=== PATIENT | female | born 1985 | race Caucasian/White ===

== ENCOUNTER 2016-12-12 12:38 | Emergency (ER) | payer MEDICAID ==
[~2016-12-12] VITALS: Ht 175.3 cm; Wt 121.3 kg
[2016-12-12] MEDS ORDERED: SODIUM CHLORIDE 0.9% 1,000ML IVBOLUS ONE (15:00)
[2016-12-12] MEDS ORDERED: ONDANSETRON 2MG/ML, 2ML IVPush ONE (15:00)
[2016-12-12] MEDS ORDERED: SODIUM CHLORIDE FLUSH 10ML SYR IVF ONE (15:00)
[2016-12-12] MEDS ORDERED: KETOROLAC 30 MG/1 ML IVPush ONE (15:00)
[2016-12-12] MEDS ORDERED: KETOROLAC 30 MG/1 ML ONE (15:01)
[2016-12-12] MEDS ORDERED: ONDANSETRON 2MG/ML, 2ML ONE (15:01)
[2016-12-12 15:48] LABS: HEMOGLOBIN 11.6 g/dL (11.7-16.4)
[2016-12-12 15:57] LABS: BLOOD UREA NITROGEN 10 mg/dL (7-18)
[2016-12-12 16:02] LABS: ASPARTATE AMINO TRANSFERASE 10 U/L (15-37)
[2016-12-12] MEDS ORDERED: OMNIPAQUE 350 MG/ML, 100ML BOTTLE ONE (17:10)
[2016-12-12 18:33] VITALS: BP 100/62
== END 2016-12-12 18:36 | disposition home or self-care (01) ==
LOC: ED 14:49
DX: R10.32 Left lower quadrant pain (principal); R19.7 Diarrhea, unspecified; R11.0 Nausea; F32.9 Major depressive disorder, single episode, unspecified; F41.1 Generalized anxiety disorder; Z90.49 Acquired absence of other specified parts of digestive tract; F17.200 Nicotine dependence, unspecified, uncomplicated
CPT/HCPCS: 36415; 74177; 80053; 81001; 84703; 85025; 96361; 96374; 96375; 99285; J1885; J2405; J7030; Q9967

== ENCOUNTER 2017-01-20 13:42 | Emergency (ER) | payer MEDICAID ==
[~2017-01-20] VITALS: Ht 177.8 cm; Wt 117.2 kg
[2017-01-20 13:45] VITALS: BP 138/83
[2017-01-20] MEDS ORDERED: SODIUM CHLORIDE 0.9% 1,000 ML IV ONE (14:21)
[2017-01-20] MEDS ORDERED: ONDANSETRON 2MG/ML, 2ML IVPush ONE (14:30)
[2017-01-20 14:53] LABS: ASPARTATE AMINO TRANSFERASE 6 U/L (15-37); BLOOD UREA NITROGEN 10 mg/dL (7-18)
[2017-01-20 15:05] LABS: HCG UR OBC PASS
[2017-01-20] MEDS ORDERED: MORPHINE SULFATE 4 MG/ML, 1ML ONE ×2 (15:34→16:40)
[2017-01-20] MEDS ORDERED: ONDANSETRON 2MG/ML, 2ML ONE (15:34)
[2017-01-20] MEDS: MORPHINE SULFATE 4 MG/ML, 1ML IVPush PRN ×2 (15:37→16:42)
[2017-01-20] MEDS ORDERED: OMNIPAQUE 350 MG/ML, 100ML BOTTLE ONE (15:56)
[2017-01-20] MEDS ORDERED: ASPI1TAB30 PO (16:48)
[2017-01-20] MEDS ORDERED: FOLI1TAB47 PO (16:49)
== END 2017-01-20 18:14 | disposition home or self-care (01) ==
LOC: ED 14:27
DX: R10.84 Generalized abdominal pain (principal); Z90.49 Acquired absence of other specified parts of digestive tract
CPT/HCPCS: 36415; 74000; 74177; 80053; 81001; 81025; 83605; 83690; 85025; 87086; 87210; 87491; 87591; 87808; 93005; 96361; 96374; 96375; 96376; 99285; J2405; J7030; Q9967

== ENCOUNTER 2017-02-08 17:53 | Emergency (ER) | payer MEDICAID ==
[~2017-02-08] VITALS: Ht 175.3 cm; Wt 118.3 kg
[~2017-02-08 17:53] MED LIST: ASPI1TAB30 PO; FOLI1TAB47 PO
[2017-02-08] MEDS ORDERED: MAALOX/HYOSCYAMINE/LIDOCAINE 45 ML BOTTLE PO ONE (19:00)
[2017-02-08 19:08] LABS: HCG UR OBC PASS
[2017-02-08] MEDS ORDERED: MAALOX/HYOSCYAMINE/LIDOCAINE 45 ML BOTTLE ONE (19:15)
[2017-02-08 19:18] LABS: BLOOD UREA NITROGEN 9 mg/dL (7-18)
[2017-02-08 19:37] LABS: ASPARTATE AMINO TRANSFERASE 12 U/L (15-37)
[2017-02-08 22:00] VITALS: BP 121/66
== END 2017-02-08 22:03 | disposition home or self-care (01) ==
LOC: ED 21:50
DX: O98.811 Other maternal infectious and parasitic diseases complicating pregnancy, first trimester (principal); K29.70 Gastritis, unspecified, without bleeding; R10.13 Epigastric pain
CPT/HCPCS: 36415; 76801; 80053; 81003; 81025; 83690; 84702; 85025

== ENCOUNTER 2017-03-15 18:50 | Emergency (ER) | payer MEDICAID ==
[~2017-03-15] VITALS: Ht 175.3 cm; Wt 117.5 kg
[2017-03-15] MEDS ORDERED: ONDANSETRON 2MG/ML, 2ML IVPush ONE (19:30)
[2017-03-15] MEDS ORDERED: SODIUM CHLORIDE FLUSH 10ML SYR IVF ONE (19:30)
[2017-03-15] MEDS ORDERED: SODIUM CHLORIDE 0.9% 1,000ML IVBOLUS ONE (19:30)
[2017-03-15] MEDS ORDERED: ONDANSETRON 2MG/ML, 2ML ONE (19:30)
[2017-03-15 19:39] LABS: ASPARTATE AMINO TRANSFERASE 13 U/L (15-37); BLOOD UREA NITROGEN 6 mg/dL (7-18)
[2017-03-15] MEDS ORDERED: PROMETHAZINE 25 MG/ML, 1ML ONE (21:26)
[2017-03-15] MEDS ORDERED: PROMETHAZINE 25 MG/ML, 1ML IM ONE (21:30)
[2017-03-15 22:30] VITALS: BP 127/68
== END 2017-03-15 22:41 | disposition home or self-care (01) ==
LOC: ED 21:54
DX: K52.9 Noninfective gastroenteritis and colitis, unspecified (principal); R19.7 Diarrhea, unspecified; R11.2 Nausea with vomiting, unspecified; G43.909 Migraine, unspecified, not intractable, without status migrainosus; E66.9 Obesity, unspecified; Z90.49 Acquired absence of other specified parts of digestive tract
CPT/HCPCS: 36415; 80053; 81003; 83690; 85025; 96361; 96372; 96374; 99285; J2405; J2550; J7030

== ENCOUNTER 2017-05-06 12:13 | Emergency (ER) | payer MEDICAID ==
[~2017-05-06] VITALS: Ht 175.3 cm; Wt 118.5 kg
[2017-05-06 13:16] LABS: HEMATOCRIT 38.3 % (34.6-47.8); HEMOGLOBIN 12.9 g/dL (11.7-16.4); WHITE BLOOD COUNT 10.2 x10^3/uL (3.4-10)
[2017-05-06 14:57] VITALS: BP 104/62
[2017-05-06 15:10] VITALS: BP 116/96
== END 2017-05-06 16:22 | disposition home or self-care (01) ==
LOC: ED 14:47
DX: O20.0 Threatened abortion (principal); O36.0920 Maternal care for other rhesus isoimmunization, second trimester, not applicable or unspecified; Z3A.18 18 weeks gestation of pregnancy
CPT/HCPCS: 36415; 36430; 76805; 81003; 84702; 85025; 86850; 86900; 99285; J2790

== ENCOUNTER 2017-06-16 13:46 | Emergency (ER) | payer MEDICAID ==
[~2017-06-16] VITALS: Ht 170.2 cm; Wt 110.0 kg
[~2017-06-16 13:46] MED LIST changes: -ASPI1TAB30 PO; +ASPI1TAB31 PO
[2017-06-16 13:49] VITALS: BP 120/64
[2017-06-16] MEDS ORDERED: SODIUM CHLORIDE FLUSH 10ML SYR IVF ONE (14:00)
[2017-06-16] MEDS ORDERED: SODIUM CHLORIDE 0.9% 1,000ML IVBOLUS ONE (14:00)
[2017-06-16 14:12] LABS: HEMATOCRIT 35.1 % (34.6-47.8); HEMOGLOBIN 11.6 g/dL (11.7-16.4); WHITE BLOOD COUNT 7.6 x10^3/uL (3.4-10)
[2017-06-16 14:23] LABS: ASPARTATE AMINO TRANSFERASE 25 U/L (15-37); BLOOD UREA NITROGEN 6 mg/dL (7-18)
== END 2017-06-16 16:56 | disposition home or self-care (01) ==
LOC: ED 14:49
DX: O26.892 Other specified pregnancy related conditions, second trimester (principal); Z3A.24 24 weeks gestation of pregnancy; R55 Syncope and collapse; Z88.2 Allergy status to sulfonamides
CPT/HCPCS: 36415; 70450; 76815; 80053; 81001; 85025; 87086; 93005; 96360; 96361; 99285; J7030

== ENCOUNTER 2017-06-16 17:09 | Outpatient (CLI) | payer MEDICAID | END 2017-06-16 17:57 | disposition home or self-care (01) | LOC: LDOP 17:09 | PROVIDERS: ATTEND Obstetrics & Gynecology | DX: O26.892 Other specified pregnancy related conditions, second trimester (principal); O99.342 Other mental disorders complicating pregnancy, second trimester; O99.282 Endocrine, nutritional and metabolic diseases complicating pregnancy, second trimester; F32.9 Major depressive disorder, single episode, unspecified; E07.9 Disorder of thyroid, unspecified; R55 Syncope and collapse; R56.9 Unspecified convulsions; Z3A.24 24 weeks gestation of pregnancy | CPT/HCPCS: 59025; 99201; G0463 ==

== ENCOUNTER 2017-06-26 17:23 | Emergency (ER) | payer MEDICAID ==
[~2017-06-26] VITALS: Ht 175.3 cm; Wt 120.0 kg
[2017-06-26] MEDS ORDERED: SODIUM CHLORIDE FLUSH 10ML SYR IVF ONE (18:00)
[2017-06-26 19:13] LABS: HEMATOCRIT 34.7 % (34.6-47.8); HEMOGLOBIN 11.9 g/dL (11.7-16.4); WHITE BLOOD COUNT 8.2 x10^3/uL (3.4-10)
[2017-06-26 19:21] LABS: BLOOD UREA NITROGEN 6 mg/dL (7-18)
[2017-06-26 19:57] LABS: ASPARTATE AMINO TRANSFERASE 30 U/L (15-37)
[2017-06-26 20:00] LABS: IS PT STATUS REG ER OR PRE ER? YES
[2017-06-26] MEDS ORDERED: OMNIPAQUE 350 MG/ML, 100ML BOTTLE ONE (22:49)
[2017-06-27] VITALS: BP 120/65
== END 2017-06-27 00:43 ==
LOC: ED 18:38
DX: O99.342 Other mental disorders complicating pregnancy, second trimester (principal); F32.9 Major depressive disorder, single episode, unspecified; R06.00 Dyspnea, unspecified; O99.212 Obesity complicating pregnancy, second trimester; Z87.891 Personal history of nicotine dependence; Z3A.25 25 weeks gestation of pregnancy; Z90.49 Acquired absence of other specified parts of digestive tract
CPT/HCPCS: 36415; 71010; 71275; 80048; 80076; 82040; 83880; 84484; 85025; 85379; 93005; 99285; Q9967

== ENCOUNTER 2017-06-27 10:45 | Emergency (ER) | payer MEDICAID ==
[~2017-06-27] VITALS: Ht 175.3 cm; Wt 120.5 kg
[2017-06-27] MEDS ORDERED: SODIUM CHLORIDE FLUSH 10ML SYR IVF ONE (11:30)
[2017-06-27] MEDS ORDERED: ASPIRIN 81 MG TABLET CHEW PO ONE (11:30)
[2017-06-27] MEDS ORDERED: ASPIRIN 81 MG TABLET CHEW ONE (11:34)
[2017-06-27 11:49] LABS: HEMATOCRIT 33.2 % (34.6-47.8); HEMOGLOBIN 11.2 g/dL (11.7-16.4); WHITE BLOOD COUNT 7.2 x10^3/uL (3.4-10)
[2017-06-27 11:56] LABS: BLOOD UREA NITROGEN 4 mg/dL (7-18)
[2017-06-27 12:03] LABS: IS PT STATUS REG ER OR PRE ER? YES
[2017-06-27 12:40] VITALS: BP 108/78
== END 2017-06-27 13:18 | disposition home or self-care (01) ==
LOC: ED 12:12
DX: O26.892 Other specified pregnancy related conditions, second trimester (principal); R07.89 Other chest pain; O99.282 Endocrine, nutritional and metabolic diseases complicating pregnancy, second trimester; E05.90 Thyrotoxicosis, unspecified without thyrotoxic crisis or storm; Z3A.25 25 weeks gestation of pregnancy
CPT/HCPCS: 36415; 71010; 80048; 81001; 82040; 83735; 84436; 84443; 84484; 85025; 87086; 93005; 99285

== ENCOUNTER 2017-08-23 09:11 | Outpatient (CLI) | payer MEDICAID ==
[~2017-08-23] VITALS: Ht 175.3 cm; Wt 263.0 kg
[2017-08-23 09:28] VITALS: BP 128/76
== END 2017-08-23 10:00 | disposition home or self-care (01) ==
LOC: LDOP 09:11
PROVIDERS: ATTEND Student in an Organized Health Care Education/Training Program
DX: O36.8130 Decreased fetal movements, third trimester, not applicable or unspecified (principal); O99.343 Other mental disorders complicating pregnancy, third trimester; O99.283 Endocrine, nutritional and metabolic diseases complicating pregnancy, third trimester; F32.9 Major depressive disorder, single episode, unspecified; E07.9 Disorder of thyroid, unspecified; Z3A.32 32 weeks gestation of pregnancy
CPT/HCPCS: 59025; 99211; G0463

== ENCOUNTER 2017-09-02 11:32 | Observation (INO) | payer MEDICAID ==
[~2017-09-02] VITALS: Ht 175.3 cm; Wt 126.8 kg
[2017-09-02 11:59] VITALS: BP 127/71
[2017-09-02 12:16] LABS: HEMATOCRIT 34.5 % (34.6-47.8); HEMOGLOBIN 11.5 g/dL (11.7-16.4); WHITE BLOOD COUNT 10.4 x10^3/uL (3.4-10)
[2017-09-02 12:24] LABS: BLOOD UREA NITROGEN 6 mg/dL (7-18)
[2017-09-02 12:28] LABS: ASPARTATE AMINO TRANSFERASE 9 U/L (15-37)
[2017-09-02 14:30] LABS: DAU SCREEN DISCLAIMER
[2017-09-02] MEDS: BUTALB/APAP/CAFFEINE 50MG/325MG/40MG PO PRN ×2 (18:23→22:39)
[2017-09-03] MEDS ORDERED: METOCLOPRAMIDE 5 MG/ML, 2ML IVPush ONE (09:30)
[2017-09-03] MEDS ORDERED: DIPHENHYDRAMINE 50 MG/ML, 1ML IVPush ONE (09:30)
[2017-09-03] MEDS ORDERED: METOCLOPRAMIDE 5 MG/ML, 2ML ONE (09:40)
[2017-09-03] MEDS ORDERED: DIPHENHYDRAMINE 50 MG/ML, 1ML ONE (09:40)
[2017-09-03] MEDS ORDERED: DIPHENHYDRAMINE 50 MG/ML, 1ML IM ONE (10:00)
[2017-09-03] MEDS ORDERED: APAP/CODEINE 300/30MG TABLET PO ONE (14:30)
== END 2017-09-03 17:10 | disposition home or self-care (01) ==
LOC: LDOP 11:32 → LDIP 11:43
PROVIDERS: ADMIT Student in an Organized Health Care Education/Training Program; ATTEND Student in an Organized Health Care Education/Training Program
DX: O26.893 Other specified pregnancy related conditions, third trimester (principal); R51 Headache; O99.213 Obesity complicating pregnancy, third trimester; E66.01 Morbid (severe) obesity due to excess calories; O99.343 Other mental disorders complicating pregnancy, third trimester; O12.13 Gestational proteinuria, third trimester; Z82.49 Family history of ischemic heart disease and other diseases of the circulatory system; Z83.3 Family history of diabetes mellitus; Z3A.35 35 weeks gestation of pregnancy
CPT/HCPCS: 36415; 76805; 80053; 80307; 81001; 81050; 82248; 84156; 84550; 85025; 96372; 96374; 96375; G0378; J1200; J2765; G0479

== ENCOUNTER 2017-09-09 08:50 | Outpatient (CLI) | payer MEDICAID ==
[~2017-09-09] VITALS: Ht 175.3 cm; Wt 122.7 kg
[2017-09-09 09:48] LABS: AMNISURE NEGATIVE (NEGATIVE)
[2017-09-09 09:49] LABS: AMNI OBC PASS
[2017-09-09 10:11] VITALS: BP 119/80
== END 2017-09-09 10:52 | disposition home or self-care (01) ==
LOC: LDOP 08:50
PROVIDERS: ATTEND Student in an Organized Health Care Education/Training Program
DX: O26.893 Other specified pregnancy related conditions, third trimester (principal); O99.283 Endocrine, nutritional and metabolic diseases complicating pregnancy, third trimester; O99.343 Other mental disorders complicating pregnancy, third trimester; E07.9 Disorder of thyroid, unspecified; F32.9 Major depressive disorder, single episode, unspecified; R10.9 Unspecified abdominal pain; Z3A.36 36 weeks gestation of pregnancy
CPT/HCPCS: 59025; 84112; 99211; G0463

== ENCOUNTER 2017-09-23 10:01 | Inpatient (IN) | payer MEDICAID ==
[~2017-09-23] VITALS: Ht 175.3 cm; Wt 125.0 kg
[2017-09-23] MEDS ORDERED: OXYTOCIN 30U/ 0.9% NaCL 500ML 500 ML IV ONE (10:14)
[2017-09-23] MEDS ORDERED: OXYTOCIN 30U/ 0.9% NaCL 500ML 500 ML IV PRN (10:14)
[2017-09-23] MEDS ORDERED: PENICILLIN GK 5,000,000 UNITS in DEXTROSE 5% 100 ML IVPB ONE (10:30)
[2017-09-23] MEDS ORDERED: SODIUM CITRATE/CITRIC ACID 30 ML UDC PO PRN (10:30)
[2017-09-23] MEDS ORDERED: ONDANSETRON 2MG/ML, 2ML IVPush PRN (10:30)
[2017-09-23] MEDS ORDERED: ALUMINUM/MAG/SIMETHICONE 30 ML UDC PO PRN (10:30)
[2017-09-23 10:43] LABS: BASOPHILS # (AUTO) 0.03 x10^3/uL (0-0.1); BASOPHILS % (AUTO) 0 % (0-1); EOSINOPHILS # (AUTO) 0.04 x10^3/uL (0-0.4); EOSINOPHILS % (AUTO) 0 % (1-7); LYMPHOCYTES % (AUTO) 30 % (22-44); MD NO; MEAN CORPUSCULAR HEMOGLOBIN 26.2 pg (27.0-34.8); MEAN CORPUSCULAR HGB CONC 32.7 g/dL (32.4-35.8); MEAN CORPUSCULAR VOLUME 80.1 fL (80-100); MEAN PLATELET VOLUME 9.7 fL (7.4-10.4); MONOCYTES # (AUTO) 0.57 x10^3/uL (0.2-0.8); MONOCYTES % (AUTO) 6 % (2-9); NEUTROPHILS # (AUTO) 5.81 x10^3/uL (1.8-6.8); NEUTROPHILS % (AUTO) 64 % (42-75); PLATELET COUNT 202 x10^3/uL (130-400); RED BLOOD COUNT 4.38 x10^6/uL (3.82-5.3); RED CELL DISTRIBUTION WIDTH 17.5 % (9.6-15.2)
[2017-09-23 10:51] LABS: ALANINE AMINOTRANSFERASE 16 U/L (12-78); ALBUMIN 2.5 g/dL (3.4-5.0); ANION GAP 9 mmol/L (5-15); CHLORIDE 105 mmol/L (98-107)
[2017-09-23 10:54] LABS: ALKALINE PHOSPHATASE 145 U/L (45-117); BILIRUBIN, DIRECT < 0.1 mg/dL (0.1-0.2); BILIRUBIN,TOTAL 0.5 mg/dL (0.2-1.0); TOTAL PROTEIN 6.1 g/dL (6.4-8.2)
[2017-09-23] MEDS ORDERED: OXYTOCIN 30U/ 0.9% NaCL 500ML 500 ML ONE (10:57)
[2017-09-23] MEDS ORDERED: MISOPROSTOL 200 MCG TABLET ONE (10:57)
[2017-09-23] MEDS ORDERED: NEWBORN KIT ONE (10:57)
[2017-09-23] MEDS: LACTATED RINGERS 1,000 ML IV SCH ×3 (11:00→18:25)
[2017-09-23] MEDS: PENICILLIN GK 2,500,000 UNITS in DEXTROSE 5% 100 ML IVPB SCH ×4 (11:01→23:06)
[2017-09-23 11:02] LABS: AMPHETAMINE SCREEN, URINE Negative (Negative); BARBITURATE SCREEN, URINE Negative (Negative); BENZODIAZEPINE SCREEN, URINE Negative (Negative); CANNABINOID SCREEN, URINE Positive (Negative); COCAINE SCREEN, URINE Negative (Negative); METHADONE SCREEN, URINE Negative (Negative); OPIATE SCREEN, URINE Negative (Negative)
[2017-09-23 11:07] LABS: MICROSCOPIC INDICATED
[2017-09-23] MEDS ORDERED: PLEASE ENTER HEIGHT AND WEIGHT MC SCH (11:30)
[2017-09-23] MEDS ORDERED: FENTANYL PF 100 MCG/2ML ONE ×6 (12:47→21:19)
[2017-09-23] MEDS: FENTANYL PF 100 MCG/2ML IVPush PRN ×3 (12:48→16:09)
[2017-09-23] MEDS ORDERED: BUPIVACAINE 0.25% ONE ×2 (18:00→20:48)
[2017-09-23] MEDS ORDERED: FENTANYL/BUPIV./NS/PF 250 ML EPIDCONT ONE ×2 (18:01→18:05)
[2017-09-23] MEDS: D5%-LACTATED RINGERS 1,000 ML IV SCH ×2 (18:14→23:06)
[2017-09-23] MEDS ORDERED: FENTANYL/BUPIV./NS/PF 250 ML EPIDCONT SCH (18:25)
[2017-09-23] MEDS ORDERED: LACTATED RINGERS 1,000 ML IVBOLUS PRN (18:30)
[2017-09-23] MEDS ORDERED: ONDANSETRON 2MG/ML, 2ML ONE (19:16)
[2017-09-23] MEDS ORDERED: BUPIVACAINE/PF 0.25% ONE (21:19)
[2017-09-24] MEDS ORDERED: ONDANSETRON 2MG/ML, 2ML IV PRN (00:30)
[2017-09-24] MEDS ORDERED: DIPH,PERTUSS(ACELL),TET VAC/PF NC IM-VACC PRN (00:30)
[2017-09-24] MEDS ORDERED: CALCIUM CARBONATE 500 MG TAB.CHEW PO PRN (00:30)
[2017-09-24] MEDS ORDERED: MEASLES,MUMPS&RUBELLA VACC/PF 0.5 ML SQ PRN (00:30)
[2017-09-24] MEDS ORDERED: MISOPROSTOL 200 MCG TABLET PR PRN (00:30)
[2017-09-24] MEDS ORDERED: RHOGAM FROM BLOOD BANK 1 NOTE EA IM/IV ONE (00:30)
[2017-09-24] MEDS ORDERED: MAGNESIUM HYDROXIDE 8%, 30ML UDC PO PRN (00:30)
[2017-09-24] MEDS ORDERED: ACETAMINOPHEN 325 MG TABLET PO PRN ×2 (00:30)
[2017-09-24] MEDS ORDERED: OXYTOCIN 30U/ 0.9% NaCL 500ML 500 ML ONE (00:31)
[2017-09-24] MEDS: OXYTOCIN 30U/ 0.9% NaCL 500ML 500 ML IV SCH ×3 (00:33→20:17)
[2017-09-24] MEDS ORDERED: IBUPROFEN 600 MG TABLET ONE (00:51)
[2017-09-24] MEDS: IBUPROFEN 600 MG TABLET PO PRN ×3 (00:54→16:29)
[2017-09-24] MEDS ORDERED: OXYcodone/APAP 5/325MG TABLET ONE (01:37)
[2017-09-24] MEDS: OXYcodone/APAP 5/325MG TABLET PO PRN ×4 (01:40→20:15)
[2017-09-24] MEDS: D5%-LACTATED RINGERS 1,000 ML IV SCH (02:14)
[2017-09-24] MEDS: LACTATED RINGERS 1,000 ML IV SCH ×4 (02:14→14:06)
[2017-09-24 02:40] VITALS: BP 102/56
[2017-09-24] MEDS: PENICILLIN GK 2,500,000 UNITS in DEXTROSE 5% 100 ML IVPB SCH (03:00)
[2017-09-24 07:10] VITALS: BP 118/79
[2017-09-24] MEDS: PRENATAL VIT/IRON/FA 1 EACH TABLET PO SCH (07:41)
[2017-09-24] MEDS: DOCUSATE 100 MG CAPSULE PO PRN (07:41)
[2017-09-24 08:27] LABS: BASOPHILS # (AUTO) 0.03 x10^3/uL (0-0.1); BASOPHILS % (AUTO) 0 % (0-1); EOSINOPHILS # (AUTO) 0.05 x10^3/uL (0-0.4); EOSINOPHILS % (AUTO) 1 % (1-7); LYMPHOCYTES # (AUTO) 2.36 x10^3/uL (1-3.4); LYMPHOCYTES % (AUTO) 23 % (22-44); MD NO; MEAN CORPUSCULAR HEMOGLOBIN 26.7 pg (27.0-34.8); MEAN CORPUSCULAR HGB CONC 33.3 g/dL (32.4-35.8); MEAN PLATELET VOLUME 10.6 fL (7.4-10.4); MONOCYTES # (AUTO) 0.64 x10^3/uL (0.2-0.8); MONOCYTES % (AUTO) 6 % (2-9); NEUTROPHILS # (AUTO) 7.37 x10^3/uL (1.8-6.8); NEUTROPHILS % (AUTO) 71 % (42-75); PLATELET COUNT 201 x10^3/uL (130-400); RED BLOOD COUNT 3.85 x10^6/uL (3.82-5.3); RED CELL DISTRIBUTION WIDTH 17.4 % (9.6-15.2)
[2017-09-24] MEDS ORDERED: HYDR-3240 PO (11:11)
[2017-09-24] MEDS ORDERED: IBUP200T49 PO (11:12)
[2017-09-24 12:15] VITALS: BP 115/72
[2017-09-24 16:30] VITALS: BP 110/79
[2017-09-24 20:00] VITALS: BP 115/78
[2017-09-25 00:15] VITALS: BP 112/75
[2017-09-25] MEDS: OXYcodone/APAP 5/325MG TABLET PO PRN ×3 (05:41→13:56)
[2017-09-25] MEDS: IBUPROFEN 600 MG TABLET PO PRN ×2 (05:41→13:56)
[2017-09-25 07:04] VITALS: BP 135/83
[2017-09-25] MEDS: PRENATAL VIT/IRON/FA 1 EACH TABLET PO SCH (09:34)
[2017-09-25] MEDS: DOCUSATE 100 MG CAPSULE PO PRN (09:34)
[2017-09-25] MEDS ORDERED: IBUP-1222 PO (13:58)
[2017-09-25] MEDS ORDERED: OXYC-302 PO (13:59)
== END 2017-09-25 17:50 | disposition home or self-care (01) | DRG 775 ==
LOC: LDIP 10:01 → 2NW 09-24 02:20
PROVIDERS: ADMIT Student in an Organized Health Care Education/Training Program; ATTEND Student in an Organized Health Care Education/Training Program
PROC: 10E0XZZ Delivery of Products of Conception, External Approach (ICD-10-PCS; principal; 2017-09-24)
PROC: 10907ZC Drainage of Amniotic Fluid, Therapeutic from Products of Conception, Via Natural or Artificial Opening (ICD-10-PCS; 2017-09-24)
PROC: 3E0P3VZ Introduction of Hormone into Female Reproductive, Percutaneous Approach (ICD-10-PCS; 2017-09-24)
PROC: 3E0R3BZ Introduction of Anesthetic Agent into Spinal Canal, Percutaneous Approach (ICD-10-PCS; 2017-09-24)
PROC: 00HU33Z Insertion of Infusion Device into Spinal Canal, Percutaneous Approach (ICD-10-PCS; 2017-09-24)
PROC: 30233S1 Transfusion of Nonautologous Globulin into Peripheral Vein, Percutaneous Approach (ICD-10-PCS; 2017-09-24)
DX: O99.824 Streptococcus B carrier state complicating childbirth (principal); E66.9 Obesity, unspecified; O99.324 Drug use complicating childbirth; O99.354 Diseases of the nervous system complicating childbirth; F12.90 Cannabis use, unspecified, uncomplicated; F17.200 Nicotine dependence, unspecified, uncomplicated; G43.909 Migraine, unspecified, not intractable, without status migrainosus; O13.4 Gestational [pregnancy-induced] hypertension without significant proteinuria, complicating childbirth; O14.94 Unspecified pre-eclampsia, complicating childbirth; O26.893 Other specified pregnancy related conditions, third trimester; O99.214 Obesity complicating childbirth; O99.334 Smoking (tobacco) complicating childbirth; Z37.0 Single live birth; Z3A.38 38 weeks gestation of pregnancy
CPT/HCPCS: 36415; 80053; 80307; 81001; 82248; 82570; 84156; 84550; 85025; 85461; 86850; 86900; J2405; J2540; J2790; J3010; G0479; J2590; J7120; J7121

== ENCOUNTER 2017-11-02 19:56 | Emergency (ER) | payer MEDICAID ==
[~2017-11-02] VITALS: Ht 175.3 cm; Wt 115.4 kg
[~2017-11-02 19:56] MED LIST changes: +HYDR-3240 PO; +IBUP-1222 PO; +IBUP200T49 PO; +OXYC-302 PO
[2017-11-02 20:03] VITALS: BP 149/102
== END 2017-11-02 20:40 | disposition home or self-care (01) ==
LOC: ED 20:34
DX: H66.92 Otitis media, unspecified, left ear (principal); Z87.891 Personal history of nicotine dependence
CPT/HCPCS: 99283

== ENCOUNTER 2018-01-05 12:42 | Emergency (ER) | payer MEDICAID ==
[~2018-01-05] VITALS: Ht 175.3 cm; Wt 121.8 kg
[2018-01-05 12:54] VITALS: BP 129/91
== END 2018-01-05 13:33 | disposition home or self-care (01) ==
LOC: ED 13:20
DX: N64.4 Mastodynia (principal); G43.909 Migraine, unspecified, not intractable, without status migrainosus; E05.90 Thyrotoxicosis, unspecified without thyrotoxic crisis or storm; E66.9 Obesity, unspecified
CPT/HCPCS: 99283

== ENCOUNTER 2018-02-20 08:21 | Emergency (ER) | payer MEDICAID ==
[~2018-02-20] VITALS: Ht 175.3 cm; Wt 123.8 kg
[2018-02-20 08:22] VITALS: BP 125/84
[2018-02-20] MEDS ORDERED: ACET325T14 PO (10:00)
[2018-02-20] MEDS ORDERED: HYDROcodone/APAP 5/325 TABLET ONE (10:15)
[2018-02-20] MEDS ORDERED: HYDROcodone/APAP 5/325 TABLET PO ONE (10:30)
== END 2018-02-20 10:33 | disposition home or self-care (01) ==
LOC: ED 10:13
DX: H65.02 Acute serous otitis media, left ear (principal); H60.502 Unspecified acute noninfective otitis externa, left ear; E05.90 Thyrotoxicosis, unspecified without thyrotoxic crisis or storm; E66.9 Obesity, unspecified
CPT/HCPCS: 99283

== ENCOUNTER 2018-04-22 09:33 | Emergency (ER) | payer MEDICAID ==
[~2018-04-22] VITALS: Ht 175.3 cm; Wt 118.3 kg
[~2018-04-22 09:33] MED LIST changes: +ACET325T14 PO
[2018-04-22 09:37] VITALS: BP 123/75
== END 2018-04-22 11:11 | disposition home or self-care (01) ==
LOC: ED 11:05
DX: S83.015A Lateral dislocation of left patella, initial encounter (principal); E03.9 Hypothyroidism, unspecified; G43.909 Migraine, unspecified, not intractable, without status migrainosus; X50.1XXA Overexertion from prolonged static or awkward postures, initial encounter; Y93.89 Activity, other specified; Y92.009 Unspecified place in unspecified non-institutional (private) residence as the place of occurrence of the external cause; Y99.8 Other external cause status
CPT/HCPCS: 99284

== ENCOUNTER 2018-06-13 07:24 | Emergency (ER) | payer MEDICAID ==
[~2018-06-13] VITALS: Ht 175.3 cm; Wt 120.0 kg
[2018-06-13] MEDS ORDERED: DIAZEPAM 5 MG TABLET ONE (07:52)
[2018-06-13] MEDS ORDERED: KETOROLAC 30 MG/1 ML ONE (07:52)
[2018-06-13] MEDS ORDERED: KETOROLAC 30 MG/1 ML IM ONE (08:00)
[2018-06-13] MEDS ORDERED: DIAZEPAM 5 MG TABLET PO ONE (08:00)
[2018-06-13] MEDS ORDERED: OXYcodone/APAP 10/325MG TABLET ONE (09:50)
[2018-06-13] MEDS ORDERED: OXYcodone/APAP 10/325MG TABLET PO ONE (10:00)
[2018-06-13 10:02] VITALS: BP 114/73
== END 2018-06-13 10:41 | disposition home or self-care (01) ==
LOC: ED 08:14
DX: S29.012A Strain of muscle and tendon of back wall of thorax, initial encounter (principal); E05.90 Thyrotoxicosis, unspecified without thyrotoxic crisis or storm; G43.909 Migraine, unspecified, not intractable, without status migrainosus; X58.XXXA Exposure to other specified factors, initial encounter; Y93.89 Activity, other specified; Y99.8 Other external cause status; Y92.89 Other specified places as the place of occurrence of the external cause
CPT/HCPCS: 71045; 96372; 99283; J1885

== ENCOUNTER 2018-07-17 18:05 | Emergency (ER) | payer MEDICAID ==
[~2018-07-17] VITALS: Ht 175.3 cm; Wt 115.0 kg
[2018-07-17 19:21] LABS: BASOPHILS # (AUTO) 0.06 x10^3/uL (0-0.1); BASOPHILS % (AUTO) 1 % (0-1); EOSINOPHILS # (AUTO) 0.21 x10^3/uL (0-0.4); EOSINOPHILS % (AUTO) 2 % (1-7); LYMPHOCYTES # (AUTO) 3.99 x10^3/uL (1-3.4); LYMPHOCYTES % (AUTO) 40 % (22-44); MD NO; MEAN CORPUSCULAR HEMOGLOBIN 27.4 pg (27.0-34.8); MEAN CORPUSCULAR HGB CONC 33.3 g/dL (32.4-35.8); MEAN CORPUSCULAR VOLUME 82.4 fL (80-100); MONOCYTES # (AUTO) 0.67 x10^3/uL (0.2-0.8); MONOCYTES % (AUTO) 7 % (2-9); NEUTROPHILS # (AUTO) 5.07 x10^3/uL (1.8-6.8); NEUTROPHILS % (AUTO) 51 % (42-75); PLATELET COUNT 261 x10^3/uL (130-400); RED CELL DISTRIBUTION WIDTH 15.9 % (9.6-15.2)
[2018-07-17 19:34] LABS: ALBUMIN 4.1 g/dL (3.4-5.0); ANION GAP 8 mmol/L (5-15); CALCIUM 8.9 mg/dL (8.5-10.1); CHLORIDE 106 mmol/L (98-107); CREATININE 0.77 mg/dL (0.55-1.02)
[2018-07-17 19:41] LABS: MICROSCOPIC NOT IND
[2018-07-17 19:43] LABS: CULTURE INDICATED? NO
[2018-07-17] MEDS ORDERED: IBUPROFEN 200 MG TABLET ONE (19:59)
[2018-07-17] MEDS ORDERED: IBUPROFEN 200 MG TABLET PO ONE (20:00)
[2018-07-17 20:04] VITALS: BP 102/69
== END 2018-07-17 20:08 | disposition home or self-care (01) ==
LOC: ED 20:02
DX: R10.31 Right lower quadrant pain (principal); E03.9 Hypothyroidism, unspecified; E66.9 Obesity, unspecified
CPT/HCPCS: 36415; 76830; 80048; 81003; 82040; 84703; 85025; 99285

== ENCOUNTER 2018-08-10 19:46 | Emergency (ER) | payer MEDICAID ==
[~2018-08-10] VITALS: Ht 175.3 cm; Wt 118.2 kg
[2018-08-10 19:56] VITALS: BP 122/74
== END 2018-08-10 20:45 | disposition home or self-care (01) ==
LOC: ED 20:22
DX: H66.002 Acute suppurative otitis media without spontaneous rupture of ear drum, left ear (principal); R42 Dizziness and giddiness
CPT/HCPCS: 99283

== ENCOUNTER 2018-08-15 20:50 | Emergency (ER) | payer MEDICAID ==
[~2018-08-15] VITALS: Ht 175.3 cm; Wt 120.0 kg
[2018-08-15 21:00] VITALS: BP 108/73
[2018-08-15] MEDS ORDERED: HYDROcodone/APAP 5/325 TABLET PO PRN (21:30)
[2018-08-15] MEDS ORDERED: HYDROcodone/APAP 5/325 TABLET ONE (21:37)
== END 2018-08-15 21:53 | disposition home or self-care (01) ==
LOC: ED 21:45
DX: S83.095A Other dislocation of left patella, initial encounter (principal); G43.909 Migraine, unspecified, not intractable, without status migrainosus; F41.1 Generalized anxiety disorder; F32.9 Major depressive disorder, single episode, unspecified; Z90.49 Acquired absence of other specified parts of digestive tract; Z87.891 Personal history of nicotine dependence; X50.1XXA Overexertion from prolonged static or awkward postures, initial encounter; Y93.89 Activity, other specified; Y99.8 Other external cause status; Y92.009 Unspecified place in unspecified non-institutional (private) residence as the place of occurrence of the external cause
CPT/HCPCS: 29505; 99283

== ENCOUNTER → 2018-09-28 | Outpatient (CLI) | payer MEDICAID | END | disposition home or self-care (01) | LOC: CFH 11:56 | PROVIDERS: ATTEND Student in an Organized Health Care Education/Training Program | DX: N63.11 Unspecified lump in the right breast, upper outer quadrant (principal) | CPT/HCPCS: 76641; 77066; G0279 ==

== ENCOUNTER 2018-11-09 13:53 | Emergency (ER) | payer MEDICAID ==
[~2018-11-09] VITALS: Ht 175.3 cm; Wt 114.6 kg
[2018-11-09 14:51] LABS: BASOPHILS # (AUTO) 0.04 x10^3/uL (0-0.1); BASOPHILS % (AUTO) 0 % (0-1); EOSINOPHILS # (AUTO) 0.13 x10^3/uL (0-0.4); EOSINOPHILS % (AUTO) 1 % (1-7); LYMPHOCYTES # (AUTO) 3.34 x10^3/uL (1-3.4); LYMPHOCYTES % (AUTO) 33 % (22-44); MD NO; MEAN CORPUSCULAR HEMOGLOBIN 27.3 pg (27.0-34.8); MEAN CORPUSCULAR HGB CONC 33.9 g/dL (32.4-35.8); MEAN CORPUSCULAR VOLUME 80.7 fL (80-100); MEAN PLATELET VOLUME 9.9 fL (7.4-10.4); MONOCYTES # (AUTO) 0.52 x10^3/uL (0.2-0.8); MONOCYTES % (AUTO) 5 % (2-9); NEUTROPHILS # (AUTO) 5.98 x10^3/uL (1.8-6.8); NEUTROPHILS % (AUTO) 60 % (42-75); PLATELET COUNT 256 x10^3/uL (130-400); RED BLOOD COUNT 5.41 x10^6/uL (3.82-5.3); RED CELL DISTRIBUTION WIDTH 14.8 % (9.6-15.2)
[2018-11-09 14:57] LABS: CHLORIDE 108 mmol/L (98-107)
[2018-11-09 15:06] LABS: ALBUMIN 4.1 g/dL (3.4-5.0); ANION GAP 8 mmol/L (5-15); CALCIUM 8.6 mg/dL (8.5-10.1); CREATININE 0.76 mg/dL (0.55-1.02)
--- NOTE | 2018-11-09 15:39 | NUR ---
FROM LOBBY TO ROOM
[2018-11-09] MEDS ORDERED: LORazepam 1MG TABLET ONE (15:57)
[2018-11-09] MEDS ORDERED: LORazepam 1MG TABLET PO ONE (16:00)
--- NOTE | 2018-11-09 16:02 | NUR ---
ASSUMED CARE OF PT. PT PRESENTS TO ED WITH C/O PARAOXYSMAL BENIGN POSITIONAL VERTIGO. PT WAS SEEN AND WORKED UP A FEW DAYS AGO. PT STATES MINIMAL IMPROVEMENT OF SYMPTOMS. MILDLY ANXIOUS AT THIS TIME. MILD AMOUNT OF DISTRESS NOTED. BREATHING REGUALR AND UNLABORED. POC DISCUSSED. PT MEDICATED PER Nov.23 RIGHTS VERIFIED PRIOR. WILL CONTINUE TO MONITOR.
--- NOTE | 2018-11-09 16:59 | NUR ---
RESULTS BACK. PT UP FOR RECHECK.
--- NOTE | 2018-11-09 17:44 | NUR ---
PT GIVEN ROAD TEST BY POST COMMANDER. STATES LONG SHE DOESNT TURN HER HEAD SHE DOESNT GET DIZZY.
[2018-11-09 18:22] VITALS: BP 115/75
== END 2018-11-09 18:24 | disposition home or self-care (01) ==
LOC: ED 18:11
DX: H81.392 Other peripheral vertigo, left ear (principal); H81.12 Benign paroxysmal vertigo, left ear
CPT/HCPCS: 36415; 70450; 80048; 82040; 84703; 85025; 93005; 99284

== ENCOUNTER 2019-01-18 06:35 | Emergency (ER) | payer MEDICAID ==
[~2019-01-18] VITALS: Ht 175.3 cm; Wt 111.1 kg
[2019-01-18 07:26] LABS: MICROSCOPIC NOT IND
[2019-01-18 07:32] LABS: BASOPHILS # (AUTO) 0.07 x10^3/uL (0-0.1); BASOPHILS % (AUTO) 1 % (0-1); EOSINOPHILS # (AUTO) 0.14 x10^3/uL (0-0.4); EOSINOPHILS % (AUTO) 2 % (1-7); LYMPHOCYTES # (AUTO) 2.33 x10^3/uL (1-3.4); LYMPHOCYTES % (AUTO) 30 % (22-44); MD NO; MEAN CORPUSCULAR HEMOGLOBIN 26.8 pg (27.0-34.8); MEAN CORPUSCULAR HGB CONC 32.6 g/dL (32.4-35.8); MEAN CORPUSCULAR VOLUME 82.2 fL (80-100); MEAN PLATELET VOLUME 9.6 fL (7.4-10.4); MONOCYTES # (AUTO) 0.42 x10^3/uL (0.2-0.8); MONOCYTES % (AUTO) 5 % (2-9); NEUTROPHILS # (AUTO) 4.87 x10^3/uL (1.8-6.8); NEUTROPHILS % (AUTO) 62 % (42-75); PLATELET COUNT 232 x10^3/uL (130-400); RED BLOOD COUNT 5.15 x10^6/uL (3.82-5.3); RED CELL DISTRIBUTION WIDTH 16.5 % (9.6-15.2)
[2019-01-18 07:34] LABS: CULTURE INDICATED? NO
--- NOTE | 2019-01-18 08:52 | NUR ---
Rhogam verified with Duran Cooper RN
[2019-01-18 08:55] VITALS: BP 112/72
--- NOTE | 2019-01-18 09:27 | NUR ---
Discharge instructions discussed with patient, questions answered, patient verbalizes understanding. Patient ambulates with steady gait to discharge desk in no acute distress with and two children.
== END 2019-01-18 09:29 | disposition home or self-care (01) ==
LOC: ED 08:52
DX: O20.0 Threatened abortion (principal); Z3A.01 Less than 8 weeks gestation of pregnancy; G43.909 Migraine, unspecified, not intractable, without status migrainosus; F41.1 Generalized anxiety disorder; F32.9 Major depressive disorder, single episode, unspecified
CPT/HCPCS: 36415; 76801; 81003; 84702; 85025; 86850; 86900; 96372; 99284; J2790

== ENCOUNTER 2019-02-13 18:02 | Emergency (ER) | payer MEDICAID ==
[~2019-02-13] VITALS: Ht 175.3 cm; Wt 113.7 kg
[2019-02-13 18:56] VITALS: BP 121/74
== END 2019-02-13 19:05 | disposition home or self-care (01) ==
LOC: ED 18:55
DX: K04.7 Periapical abscess without sinus (principal); K02.9 Dental caries, unspecified; Z87.891 Personal history of nicotine dependence
CPT/HCPCS: 99283

== ENCOUNTER 2019-04-13 09:36 | Emergency (ER) | payer MEDICAID ==
[~2019-04-13] VITALS: Ht 175.3 cm; Wt 108.1 kg
[2019-04-13 13:24] VITALS: BP 119/63
== END 2019-04-13 13:46 | disposition home or self-care (01) ==
LOC: ED 10:02
DX: O21.0 Mild hyperemesis gravidarum (principal); F32.9 Major depressive disorder, single episode, unspecified; E05.90 Thyrotoxicosis, unspecified without thyrotoxic crisis or storm; Z3A.21 21 weeks gestation of pregnancy; Z87.19 Personal history of other diseases of the digestive system
CPT/HCPCS: 36415; 80053; 81001; 85025; 87086; 96372; 99283; J2550

== ENCOUNTER 2019-08-18 14:06 | Outpatient (CLI) | payer MEDICAID ==
[~2019-08-18 14:06] MED LIST changes: +zofran
[2019-08-18 14:20] VITALS: BP 113/86
[2019-08-18] MEDS ORDERED: LOPERAMIDE 2 MG CAPSULE PO ONE (15:00)
[2019-08-18 15:29] LABS: CULTURE INDICATED? YES; MICROSCOPIC INDICATED
[2019-08-18 17:38] LABS: AMPHETAMINE SCREEN, URINE Negative (Negative); BARBITURATE SCREEN, URINE Negative (Negative); BENZODIAZEPINE SCREEN, URINE Negative (Negative); CANNABINOID SCREEN, URINE Positive (Negative); COCAINE SCREEN, URINE Negative (Negative); METHADONE SCREEN, URINE Negative (Negative); OPIATE SCREEN, URINE Negative (Negative)
== END 2019-08-18 17:16 | disposition home or self-care (01) ==
LOC: LDOP 14:06
PROVIDERS: ATTEND Student in an Organized Health Care Education/Training Program
DX: O36.8130 Decreased fetal movements, third trimester, not applicable or unspecified (principal); Z3A.37 37 weeks gestation of pregnancy; Z88.2 Allergy status to sulfonamides; Z90.49 Acquired absence of other specified parts of digestive tract
CPT/HCPCS: 59025; 80307; 81001; 87086; 99201; G0463

== ENCOUNTER 2019-08-24 16:57 | Outpatient (CLI) | payer MEDICAID ==
[~2019-08-24] VITALS: Ht 175.3 cm; Wt 110.9 kg
[2019-08-24 17:18] VITALS: BP 122/70
== END 2019-08-24 18:46 | disposition home or self-care (01) ==
LOC: LDOP 16:57
PROVIDERS: ATTEND Student in an Organized Health Care Education/Training Program
DX: O26.893 Other specified pregnancy related conditions, third trimester (principal); O62.9 Abnormality of forces of labor, unspecified; Z3A.38 38 weeks gestation of pregnancy
CPT/HCPCS: 59025; 99211; G0463

== ENCOUNTER 2019-08-31 07:08 | Inpatient (IN) | payer MEDICAID ==
[~2019-08-31] VITALS: Ht 175.3 cm; Wt 115.0 kg
[2019-08-31] MEDS ORDERED: D5%-LACTATED RINGERS 1,000 ML IV SCH (07:31)
[2019-08-31] MEDS ORDERED: OXYTOCIN 30U/ 0.9% NaCL 500ML 500 ML IV PRN (07:31)
[2019-08-31] MEDS ORDERED: OXYTOCIN 30U/ 0.9% NaCL 500ML 500 ML IV ONE (07:31)
[2019-08-31] MEDS: LACTATED RINGERS 1,000 ML IV SCH ×2 (07:53→11:42)
[2019-08-31] MEDS ORDERED: OXYTOCIN 30U/ 0.9% NaCL 500ML 500 ML ONE ×2 (07:55→17:03)
[2019-08-31] MEDS ORDERED: LIDOCAINE 1%, 20ML ONE (07:55)
[2019-08-31] MEDS ORDERED: NEWBORN KIT ONE (07:55)
[2019-08-31] MEDS ORDERED: MISOPROSTOL 200 MCG TABLET ONE (07:55)
[2019-08-31 08:00] LABS: BASOPHILS # (AUTO) 0.07 x10^3/uL (0-0.1); BASOPHILS % (AUTO) 1 % (0-1); EOSINOPHILS % (AUTO) 2 % (1-7); LYMPHOCYTES # (AUTO) 2.77 x10^3/uL (1-3.4); LYMPHOCYTES % (AUTO) 23 % (22-44); MD NO; MEAN CORPUSCULAR HEMOGLOBIN 27.4 pg (27.0-34.8); MEAN CORPUSCULAR HGB CONC 32.5 g/dL (32.4-35.8); MEAN CORPUSCULAR VOLUME 84.3 fL (80-100); MONOCYTES # (AUTO) 0.57 x10^3/uL (0.2-0.8); MONOCYTES % (AUTO) 5 % (2-9); NEUTROPHILS # (AUTO) 8.36 x10^3/uL (1.8-6.8); NEUTROPHILS % (AUTO) 70 % (42-75); PLATELET COUNT 199 x10^3/uL (130-400); RED BLOOD COUNT 4.18 x10^6/uL (3.82-5.3); RED CELL DISTRIBUTION WIDTH 15.7 % (9.6-15.2)
[2019-08-31] MEDS ORDERED: PENICILLIN GK 5,000,000 UNITS in DEXTROSE 5% 100 ML IVPB ONE (08:00)
[2019-08-31] MEDS ORDERED: TERBUTALINE 1 MG/ML, 1ML IVPush PRN (08:00)
[2019-08-31] MEDS ORDERED: CALCIUM CARBONATE 500 MG TAB.CHEW PO PRN (08:00)
[2019-08-31] MEDS ORDERED: ONDANSETRON 2MG/ML, 2ML IVPush PRN (08:00)
[2019-08-31] MEDS ORDERED: TERBUTALINE 1 MG/ML, 1ML SQ PRN (08:00)
[2019-08-31 08:05] LABS: MICROSCOPIC INDICATED
[2019-08-31 08:15] LABS: AMPHETAMINE SCREEN, URINE Negative (Negative); BARBITURATE SCREEN, URINE Negative (Negative); BENZODIAZEPINE SCREEN, URINE Negative (Negative); CANNABINOID SCREEN, URINE Positive (Negative); COCAINE SCREEN, URINE Negative (Negative); METHADONE SCREEN, URINE Negative (Negative); OPIATE SCREEN, URINE Negative (Negative)
[2019-08-31 08:29] VITALS: BP 117/78
[2019-08-31] MEDS ORDERED: FENTANYL PF 100 MCG/2ML ONE ×3 (11:19→15:56)
[2019-08-31] MEDS: PENICILLIN GK 2,500,000 UNITS in DEXTROSE 5% 100 ML IVPB SCH ×2 (11:56→16:13)
[2019-08-31] MEDS: FENTANYL PF 100 MCG/2ML IVPush PRN ×3 (13:48→16:01)
[2019-08-31] MEDS ORDERED: ONDANSETRON 2MG/ML, 2ML ONE (15:57)
[2019-08-31] MEDS ORDERED: METHYLERGONOVINE 0.2 MG/ML IM PRN (17:00)
[2019-08-31] MEDS ORDERED: OXYcodone/APAP 5/325MG TABLET PO PRN (17:00)
[2019-08-31] MEDS ORDERED: SIMETHICONE 80 MG CHEW TAB PO PRN (17:00)
[2019-08-31] MEDS ORDERED: METOCLOPRAMIDE 5 MG/ML, 2ML IV PRN (17:00)
[2019-08-31] MEDS ORDERED: ACETAMINOPHEN 325 MG TABLET PO PRN (17:00)
[2019-08-31] MEDS ORDERED: ONDANSETRON 2MG/ML, 2ML IV PRN (17:00)
[2019-08-31] MEDS ORDERED: CARBOPROST TROMETHAMINE 250 MCG/ML, 1ML IM PRN (17:00)
[2019-08-31] MEDS ORDERED: IBUPROFEN 800 MG TABLET PO PRN (17:00)
[2019-08-31] MEDS ORDERED: IBUPROFEN 600 MG TABLET ONE (17:03)
[2019-08-31] MEDS: IBUPROFEN 600 MG TABLET PO PRN (17:06)
[2019-08-31 19:20] VITALS: BP 116/80
[2019-08-31] MEDS: OXYcodone/APAP 5/325MG TABLET PO PRN (19:42)
[2019-08-31] MEDS: DOCUSATE 100 MG CAPSULE PO PRN (19:44)
[2019-09-01] VITALS (15 sets, daily range): BP systolic 99–129; BP diastolic 55–84
[2019-09-01] MEDS ORDERED: MISOPROSTOL 200 MCG TABLET ONE (00:16)
[2019-09-01] MEDS ORDERED: OXYTOCIN 30U/ 0.9% NaCL 500ML 500 ML ONE (00:21)
[2019-09-01] MEDS ORDERED: FENTANYL PF 100 MCG/2ML ONE (00:21)
[2019-09-01] MEDS: OXYTOCIN 30U/ 0.9% NaCL 500ML 500 ML IV SCH ×4 (00:57→22:44)
[2019-09-01] MEDS ORDERED: MISOPROSTOL 200 MCG TABLET PR ONE (01:00)
[2019-09-01] MEDS ORDERED: FENTANYL PF 100 MCG/2ML IVPush ONE (01:00)
[2019-09-01 01:05] LABS: BASOPHILS # (AUTO) 0.08 x10^3/uL (0-0.1); BASOPHILS % (AUTO) 1 % (0-1); EOSINOPHILS # (AUTO) 0.38 x10^3/uL (0-0.4); EOSINOPHILS % (AUTO) 3 % (1-7); LYMPHOCYTES # (AUTO) 3.07 x10^3/uL (1-3.4); LYMPHOCYTES % (AUTO) 21 % (22-44); MD NO; MEAN CORPUSCULAR HEMOGLOBIN 28.1 pg (27.0-34.8); MEAN CORPUSCULAR HGB CONC 32.6 g/dL (32.4-35.8); MEAN CORPUSCULAR VOLUME 86.1 fL (80-100); MEAN PLATELET VOLUME 10.3 fL (7.4-10.4); MONOCYTES # (AUTO) 0.67 x10^3/uL (0.2-0.8); MONOCYTES % (AUTO) 5 % (2-9); NEUTROPHILS # (AUTO) 10.78 x10^3/uL (1.8-6.8); NEUTROPHILS % (AUTO) 72 % (42-75); PLATELET COUNT 191 x10^3/uL (130-400)
[2019-09-01] MEDS: OXYcodone/APAP 5/325MG TABLET PO PRN ×3 (03:24→12:50)
[2019-09-01] MEDS: IBUPROFEN 600 MG TABLET PO PRN ×2 (07:56→16:20)
[2019-09-01] MEDS: DOCUSATE 100 MG CAPSULE PO PRN ×2 (07:56→19:13)
[2019-09-01] MEDS: PRENATAL VIT/IRON/FA 1 EACH TABLET PO SCH (07:56)
[2019-09-01] MEDS ORDERED: RHOGAM FROM BLOOD BANK 1 NOTE EA IM/IV ONE (11:00)
[2019-09-02] MEDS: IBUPROFEN 600 MG TABLET PO PRN ×2 (04:47→12:45)
[2019-09-02] MEDS: OXYcodone/APAP 5/325MG TABLET PO PRN ×3 (04:47→12:45)
[2019-09-02 07:28] VITALS: BP 109/70
[2019-09-02] MEDS: OXYTOCIN 30U/ 0.9% NaCL 500ML 500 ML IV SCH (08:44)
[2019-09-02] MEDS: DOCUSATE 100 MG CAPSULE PO PRN (08:54)
[2019-09-02] MEDS: PRENATAL VIT/IRON/FA 1 EACH TABLET PO SCH (08:55)
[2019-09-02] MEDS ORDERED: OXYC-302 PO (12:20)
[2019-09-02] MEDS ORDERED: IBUP-1222 PO (12:20)
== END 2019-09-02 13:55 | disposition home or self-care (01) | DRG 807 ==
LOC: LDIP 07:08 → 2NW 19:15
PROVIDERS: ADMIT Student in an Organized Health Care Education/Training Program; ATTEND Student in an Organized Health Care Education/Training Program
PROC: 10E0XZZ Delivery of Products of Conception, External Approach (ICD-10-PCS; principal; 2019-08-31)
PROC: 10907ZC Drainage of Amniotic Fluid, Therapeutic from Products of Conception, Via Natural or Artificial Opening (ICD-10-PCS; 2019-08-31)
PROC: 3E033VJ Introduction of Other Hormone into Peripheral Vein, Percutaneous Approach (ICD-10-PCS; 2019-08-31)
DX: O99.824 Streptococcus B carrier state complicating childbirth (principal); Z37.0 Single live birth; O43.893 Other placental disorders, third trimester; O69.89X0 Labor and delivery complicated by other cord complications, not applicable or unspecified; O72.2 Delayed and secondary postpartum hemorrhage; Z3A.39 39 weeks gestation of pregnancy; Z14.1 Cystic fibrosis carrier; Z83.3 Family history of diabetes mellitus; Z82.49 Family history of ischemic heart disease and other diseases of the circulatory system; Z90.49 Acquired absence of other specified parts of digestive tract; Z88.2 Allergy status to sulfonamides
CPT/HCPCS: 36415; 80307; 81001; 85025; 85461; 86850; 86900; 86923; G0378; J2405; J2540; J2790; J3010; J2210; J2590; J7120

== ENCOUNTER 2019-09-04 09:47 | Emergency (ER) | payer MEDICAID ==
[~2019-09-04] VITALS: Ht 175.3 cm; Wt 111.0 kg
[2019-09-04 09:52] VITALS: BP 125/77
--- NOTE | 2019-09-04 10:03 | NUR ---
pt presents to ED with c/o pain to left forearm where PIV was placed for labor 3 days ago. There is no swelling, erythema or drainage noted. puncture is completely healed. pt denies any other concerns at this time. cms intact, +3 left radial pulse noted. pt seen and examined by yulia garrido, awaiting dc at this time.
--- NOTE | 2019-09-04 10:14 | NUR ---
pt given dc instructions and script, educated regarding f/u instructions and return criteria. pt a&o, resps even and unlabored, nadn. pt amb to dc desk with steady gait, carrying baby in infant carseat.
== END 2019-09-04 10:17 | disposition home or self-care (01) ==
LOC: ED 10:10
DX: I80.8 Phlebitis and thrombophlebitis of other sites (principal); E05.90 Thyrotoxicosis, unspecified without thyrotoxic crisis or storm; Z90.49 Acquired absence of other specified parts of digestive tract; Z87.891 Personal history of nicotine dependence
CPT/HCPCS: 99282

== ENCOUNTER 2020-06-11 07:55 | Emergency (ER) | payer MEDICAID ==
[~2020-06-11] VITALS: Ht 175.3 cm; Wt 106.4 kg
[2020-06-11] MEDS ORDERED: PROMETHAZINE 25 MG/ML, 1ML ONE (08:16)
[2020-06-11] MEDS ORDERED: MECLIZINE CHEWABLE 25 MG TAB ONE (08:17)
[2020-06-11] MEDS ORDERED: MECLIZINE CHEWABLE 25 MG TAB PO ONE (08:30)
[2020-06-11] MEDS ORDERED: PROMETHAZINE 25 MG/ML, 1ML IM ONE (08:30)
[2020-06-11] MEDS ORDERED: DIPHENHYDRAMINE 50 MG/ML, 1ML IVPush ONE (09:00)
[2020-06-11] MEDS ORDERED: SODIUM CHLORIDE 0.9% 1,000ML IVBOLUS ONE (09:00)
[2020-06-11] MEDS ORDERED: METOCLOPRAMIDE 5 MG/ML, 2ML IVPush ONE (09:00)
[2020-06-11] MEDS ORDERED: DIPHENHYDRAMINE 50 MG/ML, 1ML ONE (09:32)
[2020-06-11] MEDS ORDERED: METOCLOPRAMIDE 5 MG/ML, 2ML ONE (09:32)
[2020-06-11 10:02] LABS: BASOPHILS # (AUTO) 0.01 x10^3/uL (0-0.1); BASOPHILS % (AUTO) 0 % (0-1); EOSINOPHILS % (AUTO) 2 % (1-7); LYMPHOCYTES # (AUTO) 1.84 x10^3/uL (1-3.4); LYMPHOCYTES % (AUTO) 18 % (22-44); MD NO; MEAN CORPUSCULAR HEMOGLOBIN 26.8 pg (27.0-34.8); MEAN CORPUSCULAR HGB CONC 32.2 g/dL (32.4-35.8); MEAN CORPUSCULAR VOLUME 83.1 fL (80-100); MEAN PLATELET VOLUME 10.3 fL (7.4-10.4); MONOCYTES # (AUTO) 0.17 x10^3/uL (0.2-0.8); MONOCYTES % (AUTO) 2 % (2-9); NEUTROPHILS # (AUTO) 8.01 x10^3/uL (1.8-6.8); NEUTROPHILS % (AUTO) 78 % (42-75); PLATELET COUNT 241 x10^3/uL (130-400); RED BLOOD COUNT 5.17 x10^6/uL (3.82-5.3)
--- NOTE | 2020-06-11 10:16 | NUR ---
UPRIGHT ON GURNEY WITH EYES CLOSED, ABLE TO DOZE OFF, NO WRETCHNG, NO NEEDS AT THIS TIME, CALL LIGHT WITHIN REACH.
[2020-06-11 10:17] LABS: ALBUMIN 3.9 g/dL (3.4-5.0); ANION GAP 7 mmol/L (5-15); CALCIUM 8.9 mg/dL (8.5-10.1); CHLORIDE 111 mmol/L (98-107)
[2020-06-11 10:20] LABS: ALANINE AMINOTRANSFERASE 16 U/L (12-78); ALKALINE PHOSPHATASE 62 U/L (45-117); BILIRUBIN,TOTAL 0.4 mg/dL (0.2-1.0); CREATININE 0.69 mg/dL (0.55-1.02); TOTAL PROTEIN 7.1 g/dL (6.4-8.2)
--- NOTE | 2020-06-11 10:51 | NUR ---
TASK RN NOTE: PT AMBULATES WELL INDEPENENTLY TO BATHROOM.
--- NOTE | 2020-06-11 11:00 | NUR ---
PT AMBULATED STEADILY WITH SBA TO BR, BACK TO [facility] WITHOUT N/V, NAD, COMFORT MEASURES PROVIDED, CALL LIGHT WITHIN REACH.
[2020-06-11 11:27] VITALS: BP 117/81
--- NOTE | 2020-06-11 11:55 | NUR ---
Patient given discharge instructions and they have confirmed that they understand the instructions. Patient ambulatory with steady gait.
== END 2020-06-11 11:59 | disposition home or self-care (01) ==
LOC: ED 09:07
DX: H81.399 Other peripheral vertigo, unspecified ear (principal); R11.2 Nausea with vomiting, unspecified; Z87.891 Personal history of nicotine dependence; Z90.49 Acquired absence of other specified parts of digestive tract
CPT/HCPCS: 36415; 80053; 83690; 85025; 93005; 96361; 96372; 96374; 96375; 99284; J1200; J2550; J2765; J7030

== ENCOUNTER 2020-10-29 13:15 | Observation (INO) | payer MEDICAID ==
[~2020-10-29] VITALS: Ht 175.3 cm; Wt 108.6 kg
[~2020-10-29 13:15] MED LIST changes: +HYDR-1067 PO; -HYDR-3240 PO; -OXYC-302 PO; +OXYC1TAB14 PO
--- NOTE | 2020-10-29 13:40 | NUR ---
"SEVERE ABDOMINAL PAIN. IT HURTS TO DO ANYTHING. SOMETIMES IT FEELS LIKE IT'S TRAVELLING INTO MY RIGHT SHOULDER." RLQ ABD PAIN STARTED AT MIDNIGHT TODAY.
[2020-10-29] MEDS ORDERED: ONDANSETRON 2MG/ML, 2ML ONE ×4 (13:49→22:17)
[2020-10-29] MEDS ORDERED: HYDROmorphone 1 MG/ML, 1ML INJ ONE ×3 (13:49→22:23)
[2020-10-29] MEDS: HYDROmorphone 2 MG/ML, 1ML IVPush PRN ×2 (13:50→16:19)
[2020-10-29 13:52] LABS: MICROSCOPIC INDICATED
--- NOTE | 2020-10-29 13:57 | NUR ---
UA COLLECTED PIV PLACED-MEDICATED PER EMAR
[2020-10-29] MEDS ORDERED: ONDANSETRON 2MG/ML, 2ML IVPush ONE ×2 (14:00→18:00)
[2020-10-29 14:03] LABS: BASOPHILS % (AUTO) 0 % (0-1); EOSINOPHILS % (AUTO) 1 % (1-7); LYMPHOCYTES % (AUTO) 22 % (22-44); MEAN CORPUSCULAR HEMOGLOBIN 27.7 pg (27.0-34.8); MEAN CORPUSCULAR HGB CONC 33.3 g/dL (32.4-35.8); MEAN PLATELET VOLUME 10.1 fL (7.4-10.4); MONOCYTES % (AUTO) 4 % (2-9); NEUTROPHILS % (AUTO) 72 % (42-75); PLATELET COUNT 261 x10^3/uL (130-400); RED BLOOD COUNT 4.63 x10^6/uL (3.82-5.3); RED CELL DISTRIBUTION WIDTH 15.6 % (9.6-15.2)
[2020-10-29 14:04] LABS: ALANINE AMINOTRANSFERASE 20 U/L (12-78); ALBUMIN 3.9 g/dL (3.4-5.0); ANION GAP 5 mmol/L (5-15); CALCIUM 8.5 mg/dL (8.5-10.1); CHLORIDE 113 mmol/L (98-107); CREATININE 0.66 mg/dL (0.55-1.02)
[2020-10-29 14:08] LABS: ALKALINE PHOSPHATASE 55 U/L (45-117); BILIRUBIN,TOTAL 0.4 mg/dL (0.2-1.0); TOTAL PROTEIN 6.9 g/dL (6.4-8.2)
--- NOTE | 2020-10-29 14:35 | NUR ---
Pain improved to 3/10 Ct called to expedite test
[2020-10-29 14:38] LABS: MD SCAN
--- NOTE | 2020-10-29 14:48 | NUR ---
last meal yesterday 10/28/2020 (tomato soup)
--- NOTE | 2020-10-29 15:05 | NUR ---
to ct scan
--- NOTE | 2020-10-29 15:15 | NUR ---
REPORT FROM MERVAT MICHELLE. PT PRESENTLY IN CT.
[2020-10-29] MEDS ORDERED: OMNIPAQUE 350 MG/ML, 100ML BOTTLE ONE (15:25)
[2020-10-29] MEDS ORDERED: SODIUM CHLORIDE 0.9% 1,000ML IVBOLUS ONE (15:30)
--- NOTE | 2020-10-29 16:02 | NUR ---
DR MACHADO AT BEDSIDE FOR REASSESSMENT. PT LAYING BACK IN BED, RESPIRATIONS EVEN AND UNLABORED ON NC. SIDE RAILS UP, CALL LIGHT IN REACH.
--- NOTE | 2020-10-29 16:57 | NUR ---
PT'S SALVADOR ZARCO [phone] UPDATED ON PT'S STATUS WITH PT'S PERMISSION.
--- NOTE | 2020-10-29 17:58 | NUR ---
PT MEDICATED FOR NAUSEA. SWABS PROVIDED. AWAITING MARKETING COMMUNITY LIAISON ASSESSMENT.
--- NOTE | 2020-10-29 18:22 | NUR ---
PT RECLINED IN BED, REPORTS PAIN INCREASING. ERMD AWARE. AWAITING ORDERS AND MATERIAL WORKER ASSESSMENT.
--- NOTE | 2020-10-29 18:39 | NUR ---
OBGYN IN TO ASSESS PT AND DISCUSS PROCEDURE WITH PT AND PT .
[2020-10-29] MEDS ORDERED: BUPIVACAINE/PF 0.25% ONE (18:51)
[2020-10-29] MEDS ORDERED: EPINEPHRINE 1 MG/ML, 1ML ONE (18:51)
[2020-10-29] MEDS ORDERED: METHYLERGONOVINE 0.2 MG/ML IM ONE (18:52)
[2020-10-29] MEDS ORDERED: OXYTOCIN 10 UNITS/ML, 1ML ONE (18:53)
[2020-10-29] MEDS ORDERED: MISOPROSTOL 200 MCG TABLET ONE (18:53)
--- NOTE | 2020-10-29 19:05 | NUR ---
REPORT TO MERVAT TORRES. RAPID COVID SWAB COLLECTED.
[2020-10-29 19:13] LABS: BASOPHILS % (AUTO) 1 % (0-1); EOSINOPHILS % (AUTO) 1 % (1-7); LYMPHOCYTES % (AUTO) 20 % (22-44); MEAN CORPUSCULAR HEMOGLOBIN 27.8 pg (27.0-34.8); MEAN CORPUSCULAR HGB CONC 32.9 g/dL (32.4-35.8); MEAN PLATELET VOLUME 9.6 fL (7.4-10.4); MONOCYTES % (AUTO) 5 % (2-9); NEUTROPHILS % (AUTO) 74 % (42-75); PLATELET COUNT 237 x10^3/uL (130-400); RED BLOOD COUNT 4.01 x10^6/uL (3.82-5.3); RED CELL DISTRIBUTION WIDTH 15.7 % (9.6-15.2)
[2020-10-29 19:14] LABS: MD NO
--- NOTE | 2020-10-29 19:23 | NUR ---
RECEIVED REPORT FROM MERVAT PHILLIPS. PT RESTING ON [facility]. NADN. ARREDONDO.
[2020-10-29] MEDS ORDERED: FENTANYL PF 250 MCG/5ML ONE (20:00)
[2020-10-29] MEDS ORDERED: PROPOFOL 50 ML ONE ×2 (20:00→20:49)
[2020-10-29] MEDS ORDERED: MIDAZOLAM 1 MG/ML, 2ML ONE (20:00)
[2020-10-29] MEDS ORDERED: ROCURONIUM 10MG/ML,5ML ONE (20:01)
[2020-10-29] MEDS ORDERED: DEXAMETHASONE 4 MG/ML, 1ML ONE (20:01)
[2020-10-29] MEDS ORDERED: CEFAZOLIN 1,000 MG ONE (20:01)
[2020-10-29] MEDS ORDERED: SUCCINYLCHOLINE 20 MG/ML, 10ML ONE (20:01)
[2020-10-29] MEDS ORDERED: BUPIVACAINE/PF 0.25% INFIL ONE (20:32)
[2020-10-29] MEDS ORDERED: DIAZEPAM 5 MG/ML, 2ML IVPush PRN (21:00)
[2020-10-29] MEDS ORDERED: OXYcodone 5 MG/5 ML ORAL.SOL UDC PO PRN (21:00)
[2020-10-29] MEDS ORDERED: MEPERIDINE/PF 25MG/0.5ML IVPush PRN (21:00)
[2020-10-29] MEDS ORDERED: PROMETHAZINE 25 MG/ML, 1ML IVPush PRN (21:00)
[2020-10-29] MEDS ORDERED: EPHEDRINE 50 MG/ML, 1ML IVPush PRN (21:00)
[2020-10-29] MEDS ORDERED: HYDROmorphone 1 MG/ML, 1ML INJ IVPush PRN (21:00)
[2020-10-29] MEDS ORDERED: ONDANSETRON 2MG/ML, 2ML IVPush PRN ×2 (21:00→22:00)
[2020-10-29] MEDS ORDERED: LABETALOL 5MG/ML, 20ML IV PRN (21:00)
[2020-10-29] MEDS ORDERED: DIPHENHYDRAMINE 50 MG/ML, 1ML IVPush PRN (21:00)
[2020-10-29] MEDS ORDERED: THROMBIN 5,000 UNIT VIAL TP ONE (21:06)
[2020-10-29] MEDS ORDERED: SILVER NITRATE STICK TP ONE (21:37)
[2020-10-29] MEDS ORDERED: FENTANYL PF 100 MCG/2ML ONE ×2 (21:41→22:02)
[2020-10-29] MEDS ORDERED: morphine SULFATE 10 MG/ML, 1ML IVPush PRN (22:00)
[2020-10-29] MEDS: LACTATED RINGERS 1,000 ML IV SCH (22:00)
[2020-10-29] MEDS ORDERED: OXYcodone/APAP 5/325MG TABLET PO PRN (22:00)
[2020-10-29] MEDS ORDERED: OXYcodone 5 MG/5 ML ORAL.SOL UDC ONE (22:02)
[2020-10-29] MEDS: FENTANYL PF 100 MCG/2ML IV PRN ×2 (22:03→22:07)
[2020-10-29] MEDS ORDERED: PROMETHAZINE 25 MG/ML, 1ML ONE (22:26)
[2020-10-30] MEDS: KETOROLAC 30 MG/1 ML IVPush PRN ×2 (00:09→06:06)
[2020-10-30 01:20] VITALS: BP 84/56
[2020-10-30] MEDS: LACTATED RINGERS 1,000 ML IV SCH (02:58)
[2020-10-30 03:37] VITALS: BP 100/66
[2020-10-30 05:43] LABS: BASOPHILS % (AUTO) 0 % (0-1); EOSINOPHILS % (AUTO) 0 % (1-7); LYMPHOCYTES % (AUTO) 9 % (22-44); MEAN CORPUSCULAR HEMOGLOBIN 27.8 pg (27.0-34.8); MEAN CORPUSCULAR HGB CONC 33.2 g/dL (32.4-35.8); MEAN PLATELET VOLUME 9.7 fL (7.4-10.4); MONOCYTES % (AUTO) 4 % (2-9); NEUTROPHILS % (AUTO) 87 % (42-75); PLATELET COUNT 196 x10^3/uL (130-400); RED BLOOD COUNT 3.37 x10^6/uL (3.82-5.3); RED CELL DISTRIBUTION WIDTH 15.3 % (9.6-15.2)
[2020-10-30 05:45] LABS: MD NO
[2020-10-30] MEDS ORDERED: OXYC1TAB14 PO (06:41)
[2020-10-30 07:46] VITALS: BP 112/71
== END 2020-10-30 10:17 | disposition home or self-care (01) ==
LOC: ED 14:23 → 4NE 22:56 → ED 23:03 → INTOOBSV 23:04 → 4NE 23:04 → DCLOUNGE 10-30 10:02
PROVIDERS: ADMIT Obstetrics & Gynecology; ATTEND Obstetrics & Gynecology
DX: K66.1 Hemoperitoneum (principal); Z20.822 Contact with and (suspected) exposure to COVID-19; N83.202 Unspecified ovarian cyst, left side; E66.9 Obesity, unspecified; E05.90 Thyrotoxicosis, unspecified without thyrotoxic crisis or storm; G43.909 Migraine, unspecified, not intractable, without status migrainosus; F32.9 Major depressive disorder, single episode, unspecified; Z87.891 Personal history of nicotine dependence; Z79.899 Other long term (current) drug therapy; Z97.5 Presence of (intrauterine) contraceptive device
CPT/HCPCS: 36415; 58662; 74177; 80053; 81001; 83690; 84703; 85025; 86850; 86900; 86923; 87086; 87635; 96361; 96374; 96375; 96376; 99285; G0378; J0171; J0330; J0690; J1100; J1170; J1885; J2250; J2270; J2405; J2550; J2704; J3010; J7030; J7120; Q9967; J2210; J2590

== ENCOUNTER 2020-11-02 06:29 | Emergency (ER) | payer MEDICAID ==
[~2020-11-02] VITALS: Ht 175.3 cm; Wt 102.0 kg
--- NOTE | 2020-11-02 06:50 | NUR ---
BEDSIDE REPORT RECEIVED FROM MERVAT ENG FOR TRANSFER OF PATIENT CARE.
[2020-11-02] MEDS ORDERED: SODIUM CHLORIDE 0.9% 1,000ML IVBOLUS ONE (07:00)
[2020-11-02] MEDS ORDERED: SODIUM CHLORIDE FLUSH 10ML SYR IVF ONE (07:00)
[2020-11-02] MEDS ORDERED: MORPHINE SULFATE 4 MG/ML, 1ML IVPush PRN (07:00)
[2020-11-02] MEDS ORDERED: ONDANSETRON 2MG/ML, 2ML IVPush ONE (07:00)
[2020-11-02 07:13] LABS: BASOPHILS % (AUTO) 1 % (0-1); EOSINOPHILS % (AUTO) 4 % (1-7); LYMPHOCYTES % (AUTO) 28 % (22-44); MEAN CORPUSCULAR HEMOGLOBIN 28.2 pg (27.0-34.8); MEAN CORPUSCULAR HGB CONC 33.9 g/dL (32.4-35.8); MEAN PLATELET VOLUME 9.3 fL (7.4-10.4); MONOCYTES % (AUTO) 6 % (2-9); NEUTROPHILS % (AUTO) 62 % (42-75); PLATELET COUNT 266 x10^3/uL (130-400); RED BLOOD COUNT 3.58 x10^6/uL (3.82-5.3); RED CELL DISTRIBUTION WIDTH 15.4 % (9.6-15.2)
[2020-11-02 07:18] LABS: MD NO
[2020-11-02] MEDS ORDERED: ONDANSETRON 2MG/ML, 2ML ONE (07:19)
--- NOTE | 2020-11-02 07:25 | NUR ---
PATIENT'S SPOUSE AT BEDSIDE, REPORTS PATIENT HAD FALL LAST NIGHT IN BATHROOM, POSITIVE LOC. PATIENT DOES NOT REMEMBER INCIDENT, ERMD NOTIFIED. ASSISTED PATIENT TO BSC, MEDICATED PER eMAR, NADN, VSS, SIDE RAILS UP X2, CALL LIGHT WITHIN REACH.
[2020-11-02 07:26] LABS: ALANINE AMINOTRANSFERASE 16 U/L (12-78); ALBUMIN 3.1 g/dL (3.4-5.0); ANION GAP 9 mmol/L (5-15); CALCIUM 8.4 mg/dL (8.5-10.1); CHLORIDE 116 mmol/L (98-107); CREATININE 0.59 mg/dL (0.55-1.02)
[2020-11-02 07:30] LABS: ALKALINE PHOSPHATASE 47 U/L (45-117); BILIRUBIN,TOTAL 0.5 mg/dL (0.2-1.0)
--- NOTE | 2020-11-02 08:14 | NUR ---
PATIENT TO CT.
[2020-11-02] MEDS ORDERED: OMNIPAQUE 350 MG/ML, 100ML BOTTLE ONE (08:28)
--- NOTE | 2020-11-02 09:04 | NUR ---
ERMD AT BEDSIDE TO DISCUSS POC.
[2020-11-02 09:08] VITALS: BP 121/86
--- NOTE | 2020-11-02 09:30 | NUR ---
Patient given discharge instructions and prescripton and they have confirmed that they understand the instructions. Patient stable, wheeled from ED to private vehicle with spouse.
== END 2020-11-02 09:31 | disposition home or self-care (01) ==
LOC: ED 07:19
DX: R11.10 Vomiting, unspecified (principal); R10.9 Unspecified abdominal pain; R42 Dizziness and giddiness; E66.9 Obesity, unspecified; Z90.49 Acquired absence of other specified parts of digestive tract; Z87.891 Personal history of nicotine dependence
CPT/HCPCS: 36415; 74177; 80053; 84703; 85025; 96374; 96375; 99285; J2405; J7030; Q9967

== ENCOUNTER 2020-11-07 13:28 | Emergency (ER) | payer MEDICAID ==
[~2020-11-07] VITALS: Ht 175.3 cm; Wt 102.8 kg
--- NOTE | 2020-11-07 14:01 | NUR ---
TRANSIT MIXER OPERATOR: PT AMBULATORY TO ROOM FROM LOBBY
--- NOTE | 2020-11-07 14:01 | NUR ---
BREAK RN: PT UPRIGHT ON GURNEY AWAKE & CALM, RESPONDS APPROP TO STAFF, C/O LOW ABD PAIN, COMFORT MEASURES PROVIDED, CALL LIGHT WITHIN REACH.
[2020-11-07] MEDS ORDERED: SODIUM CHLORIDE FLUSH 10ML SYR IVF ONE (14:30)
[2020-11-07] MEDS ORDERED: ONDANSETRON 2MG/ML, 2ML IVPush ONE (14:30)
[2020-11-07] MEDS ORDERED: ONDANSETRON 2MG/ML, 2ML ONE (14:33)
[2020-11-07] MEDS ORDERED: MORPHINE SULFATE 4 MG/ML, 1ML ONE ×2 (14:33→16:16)
[2020-11-07 14:35] LABS: BASOPHILS % (AUTO) 1 % (0-1); EOSINOPHILS % (AUTO) 6 % (1-7); LYMPHOCYTES % (AUTO) 34 % (22-44); MEAN CORPUSCULAR HEMOGLOBIN 27.6 pg (27.0-34.8); MEAN CORPUSCULAR HGB CONC 33.4 g/dL (32.4-35.8); MEAN PLATELET VOLUME 8.8 fL (7.4-10.4); MONOCYTES % (AUTO) 7 % (2-9); NEUTROPHILS % (AUTO) 52 % (42-75); PLATELET COUNT 331 x10^3/uL (130-400); RED BLOOD COUNT 4.04 x10^6/uL (3.82-5.3); RED CELL DISTRIBUTION WIDTH 15.4 % (9.6-15.2)
[2020-11-07] MEDS: MORPHINE SULFATE 4 MG/ML, 1ML IVPush PRN ×2 (14:36→16:17)
[2020-11-07 14:42] LABS: MD NO
[2020-11-07 14:46] LABS: ALBUMIN 3.5 g/dL (3.4-5.0); ANION GAP 5 mmol/L (5-15); CALCIUM 8.4 mg/dL (8.5-10.1); CHLORIDE 108 mmol/L (98-107); CREATININE 0.59 mg/dL (0.55-1.02)
--- NOTE | 2020-11-07 14:50 | NUR ---
This pt was sent from her surgeons office where she was for a post op check up. Pt states she noticed sudden increase in pain at her insertion site yesterday as well as palpable mass that was new. Incision site is well approximated, no drainage, redness or swelling.
--- NOTE | 2020-11-07 15:22 | NUR ---
Pt to imaging.
[2020-11-07 15:32] LABS: MICROSCOPIC AUTO
[2020-11-07] MEDS ORDERED: OMNIPAQUE 350 MG/ML, 100ML BOTTLE ONE (15:39)
[2020-11-07 17:11] VITALS: BP 108/56
== END 2020-11-07 17:14 | disposition home or self-care (01) ==
LOC: ED 16:09
DX: S30.1XXA Contusion of abdominal wall, initial encounter (principal); R10.2 Pelvic and perineal pain; G43.909 Migraine, unspecified, not intractable, without status migrainosus; E05.90 Thyrotoxicosis, unspecified without thyrotoxic crisis or storm; X58.XXXA Exposure to other specified factors, initial encounter; Y93.89 Activity, other specified; Y92.89 Other specified places as the place of occurrence of the external cause; Y99.8 Other external cause status
CPT/HCPCS: 36415; 74177; 80048; 81001; 82040; 84703; 85025; 87086; 96374; 96375; 96376; 99285; J2270; J2405; Q9967

== ENCOUNTER 2021-02-06 09:46 | Emergency (ER) | payer MEDICAID ==
[~2021-02-06] VITALS: Ht 175.3 cm; Wt 105.0 kg
[~2021-02-06 09:46] MED LIST changes: -HYDR-1067 PO; +HYDR-2214 PO
[2021-02-06 09:48] VITALS: BP 113/75
--- NOTE | 2021-02-06 09:48 | NUR ---
PT RAMONA FROM HOME FOR FALLING OFF THE 3RD STEP OUTSIDE HER HOME. PT C/O L-ANKLE/FOOT PAIN. PT ALSO STATES WHEN SHE FELL SHE HIT HER HEAD ON A METAL RAILING. DENIES LOC. PT AXOX4. NADN/VSS. CALL LIGHT WITHIN REACH
--- NOTE | 2021-02-06 09:57 | NUR ---
XRAY AT BS
--- NOTE | 2021-02-06 10:55 | NUR ---
Patient given discharge instructions and RX, they have confirmed that they understand the instructions. Patient ambulatory with steady gait.
== END 2021-02-06 10:57 | disposition home or self-care (01) ==
LOC: ED 09:55
DX: S93.491A Sprain of other ligament of right ankle, initial encounter (principal); Z90.49 Acquired absence of other specified parts of digestive tract; Z86.39 Personal history of other endocrine, nutritional and metabolic disease; W18.30XA Fall on same level, unspecified, initial encounter; Y93.89 Activity, other specified; Y92.009 Unspecified place in unspecified non-institutional (private) residence as the place of occurrence of the external cause; Y99.8 Other external cause status
CPT/HCPCS: 99283

== ENCOUNTER 2021-03-27 12:26 | Emergency (ER) | payer MEDICAID ==
[~2021-03-27] VITALS: Ht 175.3 cm; Wt 101.0 kg
--- NOTE | 2021-03-27 13:38 | NUR ---
TO ROOM FROM LOBBY. NAD.
--- NOTE | 2021-03-27 13:49 | NUR ---
BREAK RN: THIS IS A 36 YO F W/ CC/O RLQ ABD PAIN STARTING LAST NIGHT. PT REPORTS N/D. PT REPORTS HX OF RUPTURED RT OVARIAN CYST IN OCTOBER. PT RESTING ON [employer] W/ CALL LIGHT IN REACH AND SIDE RAILS UPX2. RESP EVEN AND UNLABORED, NADN. [employer] PA STUDENT AT BEDSIDE FOR EVAL.
[2021-03-27] MEDS ORDERED: KETOROLAC 30 MG/1 ML ONE (14:23)
[2021-03-27] MEDS ORDERED: ONDANSETRON 2MG/ML, 2ML ONE (14:23)
[2021-03-27] MEDS ORDERED: SODIUM CHLORIDE FLUSH 10ML SYR IVF ONE (14:30)
[2021-03-27] MEDS ORDERED: ONDANSETRON 2MG/ML, 2ML IVPush ONE (14:30)
[2021-03-27] MEDS ORDERED: KETOROLAC 30 MG/1 ML IVPush ONE (14:30)
[2021-03-27 14:36] LABS: MICROSCOPIC INDICATED
[2021-03-27 14:44] LABS: BASOPHILS % (AUTO) 1 % (0-1); EOSINOPHILS % (AUTO) 1 % (1-7); LYMPHOCYTES % (AUTO) 33 % (22-44); MEAN CORPUSCULAR HEMOGLOBIN 25.9 pg (27.0-34.8); MEAN PLATELET VOLUME 9.8 fL (7.4-10.4); MONOCYTES % (AUTO) 5 % (2-9); NEUTROPHILS % (AUTO) 60 % (42-75); PLATELET COUNT 217 x10^3/uL (130-400); RED BLOOD COUNT 5.14 x10^6/uL (3.82-5.3); RED CELL DISTRIBUTION WIDTH 19.3 % (9.6-15.2)
[2021-03-27 14:52] LABS: ALBUMIN 3.8 g/dL (3.4-5.0); ANION GAP 3 mmol/L (5-15); CALCIUM 8.5 mg/dL (8.5-10.1); CHLORIDE 111 mmol/L (98-107)
[2021-03-27 14:58] LABS: ALANINE AMINOTRANSFERASE 17 U/L (12-78); ALKALINE PHOSPHATASE 50 U/L (45-117); BILIRUBIN,TOTAL 0.8 mg/dL (0.2-1.0); CREATININE 0.63 mg/dL (0.55-1.02); TOTAL PROTEIN 7.3 g/dL (6.4-8.2)
[2021-03-27] MEDS ORDERED: PHENAZOPYRIDINE 200 MG TABLET ONE (15:52)
--- NOTE | 2021-03-27 15:58 | NUR ---
PT MEDICATED PER EMAR FOR PAIN. VSS. NADN.
[2021-03-27] MEDS ORDERED: PHENAZOPYRIDINE 200 MG TABLET PO ONE (16:00)
[2021-03-27] MEDS ORDERED: HYDROmorphone 1 MG/ML, 1ML INJ IV ONE (16:30)
[2021-03-27] MEDS ORDERED: OMNIPAQUE 350 MG/ML, 100ML BOTTLE ONE (16:51)
[2021-03-27] MEDS ORDERED: HYDROmorphone 1 MG/ML, 1ML INJ ONE (16:51)
[2021-03-27 16:56] VITALS: BP 109/67
--- NOTE | 2021-03-27 18:02 | NUR ---
Patient given discharge instructions and they have confirmed that they understand the instructions. Patient ambulatory with steady gait. NAD, all questions answered appropriately, denies additional needs at this time. No personal belongings left in room after discharge.
== END 2021-03-27 18:03 | disposition home or self-care (01) ==
LOC: ED 15:54
DX: N30.00 Acute cystitis without hematuria (principal); R10.31 Right lower quadrant pain; R19.7 Diarrhea, unspecified; G43.909 Migraine, unspecified, not intractable, without status migrainosus; E05.90 Thyrotoxicosis, unspecified without thyrotoxic crisis or storm; Z90.49 Acquired absence of other specified parts of digestive tract
CPT/HCPCS: 36415; 74177; 80053; 81001; 84703; 85025; 87086; 96374; 96375; 99285; J1170; J1885; J2405; Q9967

== ENCOUNTER 2021-05-11 06:10 | Emergency (ER) | payer MEDICAID ==
[~2021-05-11] VITALS: Ht 175.3 cm; Wt 110.0 kg
--- NOTE | 2021-05-11 06:24 | NUR ---
PT C/O VERY PAINFUL CRAMPS, HEADACHES, FATIGUED SINCE IUD TAKEN OUT THURSDAY MORNING PT REPORTS BLEEDING 1 PAD EVERY HOUR WITH LARGE BLOOD CLOTS. BED IN LOW POSITION, RILS ENGAGED, CALL LIGHT ON LAP. A&OX4, BREATHING EVEN AND UNALBNORED. NADN. DEWITT
[2021-05-11] MEDS ORDERED: HYDROcodone/APAP 5/325 TABLET PO ONE (06:30)
[2021-05-11] MEDS ORDERED: HYDROcodone/APAP 5/325 TABLET ONE (06:31)
--- NOTE | 2021-05-11 06:59 | NUR ---
GAVE REPORT TO HAYLEE CROWELL. TRANSFER OF CARE
--- NOTE | 2021-05-11 07:01 | NUR ---
RECEIVED BEDSIDE REPORT FROM WILEY CROWELL. CARE ASSUMED. PT RESTING IN POSITION OF COMFORT. DENIES NEED TO USE RESTROOM. REPORTS 04/30 "CRAMPING PAIN AND VAGINAL PAIN." MEDICATED BY WILEY CROWELL FOR PAIN PER MD. DECLINES NEED FOR ADDITIONAL PAIN MEDICATION AT THIS TIME. VSS. CALL LIGHT IN REACH. FALL PRECAUTIONS IN PLACE. SIDE RAILS UPX2. A&OX4. AWAITING RECHECK.
[2021-05-11 07:12] LABS: BASOPHILS % (AUTO) 1 % (0-1); EOSINOPHILS % (AUTO) 2 % (1-7); LYMPHOCYTES % (AUTO) 30 % (22-44); MEAN CORPUSCULAR HEMOGLOBIN 26.7 pg (27.0-34.8); MEAN CORPUSCULAR HGB CONC 32.6 g/dL (32.4-35.8); MEAN PLATELET VOLUME 9.2 fL (7.4-10.4); MONOCYTES % (AUTO) 7 % (2-9); NEUTROPHILS % (AUTO) 60 % (42-75); PLATELET COUNT 215 x10^3/uL (130-400); RED BLOOD COUNT 4.85 x10^6/uL (3.82-5.3); RED CELL DISTRIBUTION WIDTH 17.6 % (9.6-15.2)
[2021-05-11 07:13] LABS: ALBUMIN 3.4 g/dL (3.4-5.0); ANION GAP 6 mmol/L (5-15); CALCIUM 8.7 mg/dL (8.5-10.1); CHLORIDE 108 mmol/L (98-107)
[2021-05-11 07:16] LABS: CREATININE 0.56 mg/dL (0.55-1.02)
[2021-05-11] MEDS ORDERED: ONDANSETRON ODT 4 MG PO ONE (07:30)
--- NOTE | 2021-05-11 07:33 | NUR ---
DR. AGUILAR AT BEDSIDE FOR RECHECK. PT REPORTING NAUSEA, ORDER RECEIVED. TO MEDICATE PT PER MD ORDER. VSS. CALL LIGHT IN REACH.
[2021-05-11] MEDS ORDERED: ONDANSETRON ODT 4 MG ONE (07:35)
--- NOTE | 2021-05-11 08:10 | NUR ---
DR. AGUILAR AT BEDSIDE FOR RECHECK, PT REPORTS NAUSEA IMPROVED WELL PAIN. PT AWAITING DISCHARGE PAPERS FROM ERP
[2021-05-11 08:30] VITALS: BP 113/70
== END 2021-05-11 08:34 | disposition home or self-care (01) ==
LOC: ED 08:10
DX: N92.4 Excessive bleeding in the premenopausal period (principal); R42 Dizziness and giddiness; R10.9 Unspecified abdominal pain
CPT/HCPCS: 36415; 80048; 82040; 85025; 99283; Q0162